=== PATIENT | female | born 1960 | race Two or more races ===

== ENCOUNTER 2024-09-15 09:02 | Emergency (ER) | payer SELFPAY ==
[~2024-09-15] VITALS: Ht 165.1 cm; Wt 90.9 kg
[2024-09-15 09:13] VITALS: TEMP 98.4
[2024-09-15 10:15] LABS: BASOPHILS % (AUTO) 0.8 % (0.0-2.0); EOSINOPHILS % (AUTO) 0.9 % (1.0-6.0); HEMATOCRIT 36.6 % (36-46); HEMOGLOBIN 11.2 g/dL (12.0-16.0); LYMPHOCYTES # (AUTO) 2.4 K/uL (1.0-4.8); LYMPHOCYTES % (AUTO) 26.7 % (22.0-44.0); MEAN CORPUSCULAR HEMOGLOBIN 22.7 pg (26.0-34.0); MEAN CORPUSCULAR HGB CONC 30.5 G/dL (31.0-37.0); MEAN CORPUSCULAR VOLUME 74 fL (80-100); MONOCYTES # (AUTO) 0.4 K/uL (0.1-1.0); MONOCYTES % (AUTO) 4.8 % (2.0-9.0); NEUTROPHILS # (AUTO) 5.9 K/uL (1.8-7.7); NEUTROPHILS % (AUTO) 66.8 % (40.0-70.0); PLATELET COUNT (AUTO) 272 K/uL (150-450); RED BLOOD CELL COUNT(AUTO) 4.93 MIL/uL (4.00-5.20); RED CELL DISTRIBUTION WIDTH 20.4 % (11.5-14.5); WHITE BLOOD COUNT (AUTO) 8.8 K/uL (4.5-11.0)
[2024-09-15] MEDS: LOPERAMIDE HCL 2 MG CAPSULE PO ONE (10:18)
[2024-09-15 10:19] LABS: ANION GAP 10 mmol/L (8-16); CARBON DIOXIDE 26 mmol/L (22-29); CHLORIDE 104 mmol/L (98-107); CREATININE 0.58 mg/dL (0.60-1.30); GLUCOSE,RANDOM 101 mg/dL (70-110); POTASSIUM 3.5 mmol/L (3.5-5.1); SODIUM SERUM 140 mmol/L (136-145); UREA NITROGEN, BLOOD 16 mg/dL (7-18)
[2024-09-15 10:20] LABS: CALCIUM, TOTAL 8.4 mg/dL (8.8-10.5); GLOMERULAR FILTR. RATE CALC > 60 mL/min (>60)
[2024-09-15] MEDS: DICYCLOMINE HCL 10 MG CAPSULE PO ONE (11:03)
[2024-09-15] MEDS: SIMETHICONE 80 MG CHEWABLE TABLET CHEW ONE (11:03)
[2024-09-15 11:06] VITALS: BP 145/90; PULSE 83; RESP 16; O2SAT 99
[2024-09-15] MEDS ORDERED: LOPE-232 PO (11:59)
[2024-09-15] MEDS ORDERED: DICY-1 PO (11:59)
== END 2024-09-15 12:29 | disposition home or self-care (01) ==
LOC: EMS 09:02
DX: A08.4 Viral intestinal infection, unspecified (principal); I10 Essential (primary) hypertension
CPT/HCPCS: 80048; 83735; 85025; 99284

== ENCOUNTER 2025-03-28 17:33 | Emergency (ER) | payer BC, MEDICAID ==
[~2025-03-28] VITALS: Ht 160 cm; Wt 109.1 kg
[~2025-03-28 17:33] MED LIST: DICY-1 PO; LOPE-232 PO
[2025-03-28 17:44] VITALS: BP 146/81; PULSE 96; RESP 18; TEMP 98.1; O2SAT 98
[2025-03-28] MEDS ORDERED: ASPI-1450 PO (17:47)
[2025-03-28] MEDS ORDERED: RIVA20TA PO (17:47)
== END 2025-03-28 20:56 | disposition left against medical advice (07) ==
LOC: EMS 17:33
DX: M79.671 Pain in right foot (principal); M79.672 Pain in left foot; Z53.21 Procedure and treatment not carried out due to patient leaving prior to being seen by health care provider
CPT/HCPCS: 99281; Z7502

== ENCOUNTER 2025-04-13 11:15 | Emergency (ER) | payer BC, MEDICAID ==
[~2025-04-13] VITALS: Ht 160 cm; Wt 98.6 kg
[~2025-04-13 11:15] MED LIST changes: +ASPI-1450 PO; -DICY-1 PO; -LOPE-232 PO; +RIVA20TA PO
[2025-04-13 11:22] VITALS: TEMP 97.9
[2025-04-13] MEDS ORDERED: OMEP-148 PO (11:28)
[2025-04-13] MEDS ORDERED: ATOR40TA28 PO (11:28)
[2025-04-13] MEDS ORDERED: AMLO-257 PO (11:28)
[2025-04-13] MEDS: KETOROLAC TROMETHAMINE 60 MG/2 ML VIAL IM ONE (13:42)
[2025-04-13] MEDS: LIDOCAINE 1% 10 ML VIAL SQ ONE (13:55)
[2025-04-13] MEDS: AMOXICILLIN TRIHYDRATE 250 MG CAPSULE PO ONE (14:39)
[2025-04-13 14:55] VITALS: BP 140/80; PULSE 95; RESP 16; O2SAT 98
[2025-04-13] MEDS ORDERED: AMOX250C4 PO (15:04)
== END 2025-04-13 15:21 | disposition home or self-care (01) ==
LOC: EMS 11:15
DX: K02.9 Dental caries, unspecified (principal); E78.00 Pure hypercholesterolemia, unspecified; I10 Essential (primary) hypertension; Z79.82 Long term (current) use of aspirin; Z79.899 Other long term (current) drug therapy
CPT/HCPCS: 99284; 41800; J1885; J3490